=== PATIENT | male | born 1940 | race Caucasian/White ===

== ENCOUNTER 2021-06-01 19:36 | Inpatient (IN) | payer MEDICARE ==
[~2021-06-01] VITALS: Ht 180.3 cm; Wt 96.0 kg
[2021-06-01] MEDS ORDERED: normal saline 1000ML IV soln IV ONE (19:55)
[2021-06-01] MEDS ORDERED: CefTRIAXone 2gm/D5W 50ml BAG 50 ML IV ONE (20:15)
[2021-06-01] MEDS ORDERED: vancomycin/NS 1 GM ADD-VANTAGE 250 ML IV ONE (20:15)
[2021-06-01 20:40] LABS: BASOPHILS % (AUTO) 0.5 % (0-1); EOSINOPHILS # (AUTO) 0.1 X10'3 (0-0.9); EOSINOPHILS % (AUTO) 1.1 % (0-6); HEMATOCRIT 42.6 % (42.0-52.0); HEMOGLOBIN 13.9 g/dl (14.0-17.9); LYMPHOCYTES % (AUTO) 12.9 % (21-51); MEAN CORPUSCULAR HEMOGLOBIN 29.3 PG (27.0-31.0); MEAN CORPUSCULAR HGB CONC 32.7 g/dL (33.0-36.5); MEAN CORPUSCULAR VOLUME 89.8 FL (78-98); MEAN PLATELET VOLUME 9.6 FL (7.4-10.4); MONOCYTES # (AUTO) 0.6 X10'3 (0-0.9); MONOCYTES % (AUTO) 8.2 % (2-12); NEUTROPHILS # (AUTO) 5.8 X10'3 (1.8-7.7); NEUTROPHILS % (AUTO) 77.3 % (42-75); PLATELET COUNT 166 X10'3 (140-440); RED BLOOD COUNT 4.74 X10'6 (4.70-6.10); RED CELL DISTRIBUTION WIDTH 13.5 % (11.5-14.5); WHITE BLOOD COUNT 7.5 X10'3 (4.5-11.0)
[2021-06-01 20:43] LABS: ALANINE AMINOTRANSFERASE 27 U/L (12-78); ALBUMIN 3.2 G/DL (3.4-5.0); ALBUMIN/GLOBULIN RATIO 0.8 (1.1-1.5); ALKALINE PHOSPHATASE 78 IU/L (46-116); ANION GAP 6 (8-16); ASPARTATE AMINO TRANSFERASE 16 U/L (10-37); BILIRUBIN,TOTAL 0.3 MG/DL (0.1-1.0); BLOOD UREA NITROGEN 22 MG/DL (7-18); BUN/CREATININE RATIO 16.5 (5.4-32.0); CALCIUM 8.9 MG/DL (8.5-10.1); CHLORIDE 111 MMOL/L (99-107); CREATININE 1.33 MG/DL (0.60-1.10); GLUCOSE 105 MG/DL (70-104); POTASSIUM 4.2 MMOL/L (3.5-5.1); SODIUM 145 MMOL/L (135-145); TOTAL CARBON DIOXIDE 27.6 MMOL/L (24-32); TOTAL PROTEIN 7.2 G/DL (6.4-8.2); eGFR 52 ML/MIN
[2021-06-01] MEDS ORDERED: temazepam 15mg capsule PO PRN (21:00)
[2021-06-01] MEDS ORDERED: mag hydrox/Alum hydrox/simeth 30ml oral suspension PO PRN (21:45)
[2021-06-01] MEDS ORDERED: acetaminophen 325mg tablet PO PRN ×2 (21:45)
[2021-06-01] MEDS ORDERED: magnesium Cl slow-release 64mg tablet PO PRN (21:45)
[2021-06-01] MEDS ORDERED: potassium Cl 20 mEq SR tablet PO PRN ×2 (21:45)
[2021-06-01] MEDS ORDERED: magnesium 2GM in 50ml NS 50 ML IV PRN (21:45)
[2021-06-01] MEDS ORDERED: morphine 2 MG/ML inj. syringe IV PRN (21:45)
[2021-06-01] MEDS ORDERED: magnesium 4gm in 100ml NS 100 ML IV PRN (21:45)
[2021-06-01] MEDS ORDERED: ondansetron/PF 4mg/2ml inj IV PRN (21:45)
[2021-06-01] MEDS ORDERED: potassium Cl 40MEQ/1/2NS 520ml 520 ML IV PRN ×2 (21:45)
[2021-06-01] MEDS ORDERED: magnesium hydroxide 30ml (MOM) UD suspension PO PRN (21:45)
[2021-06-01 22:16] LABS: CLARITY,URINE CLEAR (Clear); COLOR,URINE YELLOW (Yellow); GLUCOSE, URINE NEGATIVE (Neg); KETONES,URINE NEGATIVE (Neg); LEUKOCYTE ESTERASE ,URINE NEGATIVE (Neg); NITRITES, URINE NEGATIVE (Neg); OCCULT BLOOD,URINE NEGATIVE (Neg); PROTEIN,URINE NEGATIVE (Neg); UROBILINOGEN,URINE 0.2 E.U/dL (0.2-1.0)
[2021-06-01 22:23] LABS: UA COLLECTION TYPE CLN CATCH MIDSTREAM
[2021-06-02] MEDS: normal saline 1000ml 1,000 ML IV SCH ×2 (00:31→16:06)
--- NOTE | 2021-06-02 02:16 | NUR ---
pt ambulated to restroom and back in room17 on a steady gait.
[2021-06-02 04:32] LABS: BASOPHILS % (AUTO) 0.6 % (0-1); EOSINOPHILS # (AUTO) 0.1 X10'3 (0-0.9); EOSINOPHILS % (AUTO) 1.8 % (0-6); HEMATOCRIT 38.3 % (42.0-52.0); HEMOGLOBIN 12.5 g/dl (14.0-17.9); LYMPHOCYTES % (AUTO) 18.2 % (21-51); MEAN CORPUSCULAR HEMOGLOBIN 29.1 PG (27.0-31.0); MEAN CORPUSCULAR HGB CONC 32.6 g/dL (33.0-36.5); MEAN CORPUSCULAR VOLUME 89.3 FL (78-98); MEAN PLATELET VOLUME 9.8 FL (7.4-10.4); MONOCYTES # (AUTO) 0.5 X10'3 (0-0.9); MONOCYTES % (AUTO) 9.7 % (2-12); NEUTROPHILS # (AUTO) 3.9 X10'3 (1.8-7.7); NEUTROPHILS % (AUTO) 69.7 % (42-75); PLATELET COUNT 138 X10'3 (140-440); RED BLOOD COUNT 4.29 X10'6 (4.70-6.10); RED CELL DISTRIBUTION WIDTH 13.8 % (11.5-14.5); WHITE BLOOD COUNT 5.6 X10'3 (4.5-11.0)
[2021-06-02 05:01] LABS: ALANINE AMINOTRANSFERASE 30 U/L (12-78); ALBUMIN 2.5 G/DL (3.4-5.0); ALBUMIN/GLOBULIN RATIO 0.7 (1.1-1.5); ALKALINE PHOSPHATASE 65 IU/L (46-116); ANION GAP 9 (8-16); ASPARTATE AMINO TRANSFERASE 19 U/L (10-37); BILIRUBIN,TOTAL 0.2 MG/DL (0.1-1.0); BLOOD UREA NITROGEN 19 MG/DL (7-18); BUN/CREATININE RATIO 17.4 (5.4-32.0); CALCIUM 7.9 MG/DL (8.5-10.1); CHLORIDE 114 MMOL/L (99-107); CREATININE 1.09 MG/DL (0.60-1.10); GLUCOSE 95 MG/DL (70-104); SODIUM 149 MMOL/L (135-145); TOTAL CARBON DIOXIDE 25.7 MMOL/L (24-32); eGFR 65 ML/MIN
[2021-06-02] MEDS: K and/or MAG REPLACEMENT MC SCH ×2 (08:00→20:00)
[2021-06-02] MEDS: vancomycin/NS 1 GM ADD-VANTAGE 250 ML IV SCH ×2 (09:04→20:42)
[2021-06-02] MEDS ORDERED: BUDE10.2 INH (09:40)
[2021-06-02] MEDS ORDERED: LEVO50TA8 PO (09:40)
[2021-06-02] MEDS ORDERED: MONT10TA32 PO (09:40)
[2021-06-02] MEDS ORDERED: ALBU8.5H17 IH (09:40)
[2021-06-02] MEDS ORDERED: ROSU20TA2 PO (09:40)
[2021-06-02] MEDS ORDERED: EZET10TA6 PO (09:40)
[2021-06-02] MEDS ORDERED: ATEN-27 PO (09:40)
[2021-06-02 10:06] VITALS: BP 164/85
[2021-06-02] MEDS ORDERED: albuterol 2.5 MG/3 ML nebule NEB PRN (10:10)
[2021-06-02] MEDS: HYDROcodone/acetaminophen 5mg/325mg tablet PO PRN ×2 (10:39→17:54)
--- NOTE | 2021-06-02 12:28 | NUR ---
SCD BROUGHT TO THE PAC UNIT AND SCD APPLIED TO PT. Addendum: 06/02/21 at 1229 by Nola Lynn RN, RN Amended: Links added.
--- NOTE | 2021-06-02 14:29 | NUR ---
DR WARD AT [facility] PT. Addendum: 06/02/21 at 1429 by Nola Lynn RN RN Amended: Links added.
--- NOTE | 2021-06-02 16:00 | NUR ---
I have received report from Nola [facility]TI[facility] and had the opportunity to ask questions and will assume patient care once to Med/Surg.
[2021-06-02] MEDS: CefTRIAXone 2gm/D5W 50ml BAG 50 ML IV SCH (16:06)
[2021-06-02 16:30] VITALS: BP 139/71
--- NOTE | 2021-06-02 16:30 | NUR ---
Pt arrived to Med/Surg via hospital bed. To Room 348A. Pt without s/sx distress, no c/o at this time, VSS. Pt oriented to room. Will continue to monitor.
[2021-06-02 18:00] VITALS: BP 145/58
--- NOTE | 2021-06-02 18:24 | NUR ---
Problems reprioritized. Patient report given, questions answered & plan of care reviewed with Naty ORTIZ.
[2021-06-02 19:00] VITALS: BP 145/58
[2021-06-02] MEDS ORDERED: vancomycin/NS 1 GM ADD-VANTAGE 250 ML IV SCH (21:00)
[2021-06-02] MEDS: budesonide 0.5mg/2ml UD nebule IH SCH (22:30)
[2021-06-02] MEDS: albuterol 2.5 MG/3 ML nebule NEB SCH (22:30)
[2021-06-03] VITALS: BP 154/74
[2021-06-03] MEDS: albuterol 2.5 MG/3 ML nebule NEB SCH ×4 (02:48→20:06)
[2021-06-03] MEDS: normal saline 1000ml 1,000 ML IV SCH ×2 (03:39→16:39)
[2021-06-03 06:35] LABS: BASOPHILS % (AUTO) 0.5 % (0-1); EOSINOPHILS # (AUTO) 0.1 X10'3 (0-0.9); EOSINOPHILS % (AUTO) 2.5 % (0-6); HEMATOCRIT 38.5 % (42.0-52.0); HEMOGLOBIN 12.3 g/dl (14.0-17.9); LYMPHOCYTES # (AUTO) 0.8 X10'3 (1.1-4.8); LYMPHOCYTES % (AUTO) 17.4 % (21-51); MEAN CORPUSCULAR HEMOGLOBIN 28.8 PG (27.0-31.0); MEAN PLATELET VOLUME 9.7 FL (7.4-10.4); MONOCYTES # (AUTO) 0.5 X10'3 (0-0.9); MONOCYTES % (AUTO) 10.2 % (2-12); NEUTROPHILS # (AUTO) 3.3 X10'3 (1.8-7.7); NEUTROPHILS % (AUTO) 69.4 % (42-75); PLATELET COUNT 135 X10'3 (140-440); RED BLOOD COUNT 4.28 X10'6 (4.70-6.10); RED CELL DISTRIBUTION WIDTH 13.6 % (11.5-14.5); WHITE BLOOD COUNT 4.8 X10'3 (4.5-11.0)
[2021-06-03 06:36] LABS: ALANINE AMINOTRANSFERASE 23 U/L (12-78); ALBUMIN 2.5 G/DL (3.4-5.0); ALBUMIN/GLOBULIN RATIO 0.7 (1.1-1.5); ALKALINE PHOSPHATASE 64 IU/L (46-116); ANION GAP 8 (8-16); ASPARTATE AMINO TRANSFERASE 14 U/L (10-37); BILIRUBIN,TOTAL 0.1 MG/DL (0.1-1.0); BLOOD UREA NITROGEN 16 MG/DL (7-18); BUN/CREATININE RATIO 14.5 (5.4-32.0); CALCIUM 7.8 MG/DL (8.5-10.1); CHLORIDE 113 MMOL/L (99-107); GLUCOSE 108 MG/DL (70-104); POTASSIUM 3.8 MMOL/L (3.5-5.1); SODIUM 147 MMOL/L (135-145); TOTAL CARBON DIOXIDE 26.2 MMOL/L (24-32); TOTAL PROTEIN 5.9 G/DL (6.4-8.2); eGFR 65 ML/MIN
--- NOTE | 2021-06-03 06:40 | NUR ---
Patient in room [facility]. I have received report from Naty ORTIZ and had the opportunity to ask questions and assume patient care.
[2021-06-03 07:00] VITALS: BP 125/76
--- NOTE | 2021-06-03 07:05 | NUR ---
Problems reprioritized. Patient report given, questions answered & plan of care reviewed with DIANA Dejesus.
[2021-06-03] MEDS: ezetimibe 10mg tablet PO SCH (08:00)
[2021-06-03] MEDS: K and/or MAG REPLACEMENT MC SCH ×2 (08:00→20:00)
[2021-06-03] MEDS: levoTHYROXINE 25mcg tablet PO SCH (08:00)
[2021-06-03] MEDS: CefTRIAXone 2gm/D5W 50ml BAG 50 ML IV SCH (08:00)
[2021-06-03] MEDS: atenolol 25mg tablet PO SCH (08:00)
[2021-06-03] MEDS: atorvastatin 20mg tablet PO SCH (08:01)
[2021-06-03] MEDS: montelukast 10mg tablet PO SCH (08:01)
[2021-06-03] MEDS: budesonide 0.5mg/2ml UD nebule IH SCH ×2 (08:17→20:06)
[2021-06-03] MEDS ORDERED: VANCOMYCIN LEVEL IV ONE (08:30)
[2021-06-03] MEDS: vancomycin/NS 1 GM ADD-VANTAGE 250 ML IV SCH (10:03)
[2021-06-03 11:00] VITALS: BP 125/76
--- NOTE | 2021-06-03 11:00 | NUR ---
Problems reprioritized. Patient report given, questions answered & plan of care reviewed with Zenia ORTIZ.
--- NOTE | 2021-06-03 11:09 | NUR ---
Patient in room [facility]. I have received report from DIANA VALLADARES and had the opportunity to ask questions and assume patient care.
[2021-06-03 18:00] VITALS: BP 145/64
--- NOTE | 2021-06-03 18:25 | NUR ---
Patient in room [facility]. I have received report from DIANA Knutson and had the opportunity to ask questions and assume patient care.
--- NOTE | 2021-06-03 18:25 | NUR ---
Problems reprioritized. Patient report given, questions answered & plan of care reviewed with DIANA Alfonso.
[2021-06-03] MEDS: VANCOmycin 1250MG/NS 250ml Bag 250 ML IV SCH (21:29)
[2021-06-04] VITALS (17 sets, daily range): BP systolic 121–152; BP diastolic 53–82
[2021-06-04] MEDS: albuterol 2.5 MG/3 ML nebule NEB SCH ×4 (02:51→20:27)
[2021-06-04 06:23] LABS: BASOPHILS % (AUTO) 0.7 % (0-1); EOSINOPHILS # (AUTO) 0.1 X10'3 (0-0.9); EOSINOPHILS % (AUTO) 2.4 % (0-6); HEMATOCRIT 38.2 % (42.0-52.0); HEMOGLOBIN 12.3 g/dl (14.0-17.9); LYMPHOCYTES # (AUTO) 0.8 X10'3 (1.1-4.8); LYMPHOCYTES % (AUTO) 15.5 % (21-51); MEAN CORPUSCULAR HEMOGLOBIN 28.8 PG (27.0-31.0); MEAN CORPUSCULAR HGB CONC 32.3 g/dL (33.0-36.5); MEAN CORPUSCULAR VOLUME 89.1 FL (78-98); MONOCYTES # (AUTO) 0.4 X10'3 (0-0.9); MONOCYTES % (AUTO) 7.5 % (2-12); NEUTROPHILS # (AUTO) 3.7 X10'3 (1.8-7.7); NEUTROPHILS % (AUTO) 73.9 % (42-75); PLATELET COUNT 146 X10'3 (140-440); RED BLOOD COUNT 4.28 X10'6 (4.70-6.10); RED CELL DISTRIBUTION WIDTH 13.4 % (11.5-14.5)
--- NOTE | 2021-06-04 06:25 | NUR ---
Problems reprioritized. Patient report given, questions answered & plan of care reviewed with DIANA Corcoran.
[2021-06-04 06:43] LABS: ALANINE AMINOTRANSFERASE 20 U/L (12-78); ALBUMIN 2.6 G/DL (3.4-5.0); ALBUMIN/GLOBULIN RATIO 0.7 (1.1-1.5); ALKALINE PHOSPHATASE 67 IU/L (46-116); ANION GAP 11 (8-16); ASPARTATE AMINO TRANSFERASE 17 U/L (10-37); BILIRUBIN,TOTAL 0.3 MG/DL (0.1-1.0); BLOOD UREA NITROGEN 13 MG/DL (7-18); BUN/CREATININE RATIO 12.9 (5.4-32.0); CALCIUM 8.2 MG/DL (8.5-10.1); CHLORIDE 113 MMOL/L (99-107); CREATININE 1.01 MG/DL (0.60-1.10); GLUCOSE 89 MG/DL (70-104); MAGNESIUM 1.9 MG/DL (1.5-2.4); POTASSIUM 3.9 MMOL/L (3.5-5.1); SODIUM 149 MMOL/L (135-145); TOTAL CARBON DIOXIDE 25.2 MMOL/L (24-32); TOTAL PROTEIN 6.1 G/DL (6.4-8.2); eGFR 71 ML/MIN
[2021-06-04] MEDS: normal saline 1000ml 1,000 ML IV SCH ×2 (06:57→21:09)
[2021-06-04] MEDS: budesonide 0.5mg/2ml UD nebule IH SCH ×2 (07:56→20:27)
[2021-06-04] MEDS: K and/or MAG REPLACEMENT MC SCH ×2 (08:00→20:00)
[2021-06-04] MEDS: CefTRIAXone 2gm/D5W 50ml BAG 50 ML IV SCH (09:30)
[2021-06-04] MEDS ORDERED: ceFAZolin 1000mg inj ONE (09:41)
[2021-06-04] MEDS ORDERED: bacitracin 15gm ointment TP ONE (09:41)
--- NOTE | 2021-06-04 09:46 | NUR ---
Problems reprioritized. Patient report given, questions answered & plan of care reviewed with DIANA LAM FROM [facility].
[2021-06-04] MEDS ORDERED: dexamethasone sod phosphate 10mg/ml inj ONE (10:13)
[2021-06-04] MEDS ORDERED: sevoflurane 250ml liquid IH ONE (10:13)
[2021-06-04] MEDS ORDERED: hydrALAZINE 20mg/ml inj. IV PRN ×2 (10:15→10:40)
[2021-06-04] MEDS ORDERED: fentaNYL/PF 50MCG/1 ML 2ML syringe IV PRN ×4 (10:15→10:40)
[2021-06-04] MEDS ORDERED: labetalol 20mg/4ml (5mg/ml) syringe IV PRN ×2 (10:15→10:40)
[2021-06-04] MEDS ORDERED: morphine 2 MG/ML inj. syringe IV PRN ×2 (10:15→10:40)
[2021-06-04] MEDS ORDERED: ondansetron/PF 4mg/2ml inj IV PRN ×2 (10:15→10:40)
[2021-06-04] MEDS ORDERED: morphine 4 MG/ML inj SYRINge IV PRN ×2 (10:15→10:40)
[2021-06-04] MEDS ORDERED: ringers solution, lacted 1,000 ML IV SCH ×2 (10:15→10:40)
[2021-06-04] MEDS ORDERED: fentaNYL/PF 50MCG/1 ML 2ML syringe ONE (10:17)
[2021-06-04] MEDS ORDERED: midazolam 1 mg/ML 2ml injection ONE (10:18)
[2021-06-04] MEDS ORDERED: propofol inj 20 ML IV ONE (10:19)
[2021-06-04] MEDS ORDERED: LIDOcaine 2% (20mg/ml) 5ml vial ONE (10:19)
[2021-06-04] MEDS ORDERED: ondansetron/PF 4mg/2ml inj ONE (10:43)
--- NOTE | 2021-06-04 10:58 | NUR ---
Received from OR via SURGICAL BED , accompanied by Anesthesiologist JERMAN and report given by Anesthesiolgist. PATIENT WITH 20G PIV IN RIGHT UE RUNNING LR AT 100. DENIES PAIN AT THIS TIME. 10L MASK ON WITH 100% SATURATIONS. SCDS DONNED. LEFT UE IN SLING AND ELBOW EMILY BANDAGE/FOREARM SPLINT IN PLACE. NO DRAINAGE PRESENT. + CAP REFILL TO FINGERS ON LEFT UE. Addendum: 06/04/21 at 1111 by Brendon Lynn RN, RN Amended: Links added.
--- NOTE | 2021-06-04 11:41 | NUR ---
Patient in room [facility] 348B. I have received report from DIANA SMILEY FROM [facility] and had the opportunity to ask questions and assume patient care.
--- NOTE | 2021-06-04 11:58 | NUR ---
PATIENT TAKEN TO ROOM WITH NO BELONGINGS AND HOOKED UP TO MONITORS IN ROOM AND GIVEN CALL LIGHT, REPORT GIVEN TO RN WHO HAS TAKEN OVER PATIENT CARE.SHYANN DELATORER PRESENT TO SET UP VS. Addendum: 06/04/21 at 1204 by Brendon Lynn RN, RN Amended: Links added.
[2021-06-04] MEDS: levoTHYROXINE 25mcg tablet PO SCH (12:46)
[2021-06-04] MEDS: atenolol 25mg tablet PO SCH (12:46)
[2021-06-04] MEDS: ezetimibe 10mg tablet PO SCH (12:47)
[2021-06-04] MEDS: montelukast 10mg tablet PO SCH (12:47)
[2021-06-04] MEDS: atorvastatin 20mg tablet PO SCH (12:47)
[2021-06-04] MEDS: VANCOmycin 1250MG/NS 250ml Bag 250 ML IV SCH ×2 (12:47→22:44)
--- NOTE | 2021-06-04 18:36 | NUR ---
Problems reprioritized. Patient report given, questions answered & plan of care reviewed with DIANA DUBOIS.
[2021-06-04] MEDS: HYDROcodone/acetaminophen 5mg/325mg tablet PO PRN (18:48)
[2021-06-05] VITALS: BP 129/63
[2021-06-05] MEDS: albuterol 2.5 MG/3 ML nebule NEB SCH ×2 (02:46→08:24)
[2021-06-05 06:29] LABS: BASOPHILS % (AUTO) 0 % (0-1); EOSINOPHILS % (AUTO) 0 % (0-6); HEMATOCRIT 37.1 % (42.0-52.0); HEMOGLOBIN 12.2 g/dl (14.0-17.9); LYMPHOCYTES # (AUTO) 0.3 X10'3 (1.1-4.8); MEAN CORPUSCULAR HEMOGLOBIN 29.1 PG (27.0-31.0); MEAN CORPUSCULAR VOLUME 88.1 FL (78-98); MEAN PLATELET VOLUME 9.7 FL (7.4-10.4); MONOCYTES # (AUTO) 0.3 X10'3 (0-0.9); NEUTROPHILS # (AUTO) 5.4 X10'3 (1.8-7.7); PLATELET COUNT 165 X10'3 (140-440); RED BLOOD COUNT 4.21 X10'6 (4.70-6.10); RED CELL DISTRIBUTION WIDTH 13.6 % (11.5-14.5)
[2021-06-05 06:59] LABS: ALANINE AMINOTRANSFERASE 19 U/L (12-78); ALBUMIN 2.5 G/DL (3.4-5.0); ALBUMIN/GLOBULIN RATIO 0.7 (1.1-1.5); ALKALINE PHOSPHATASE 70 IU/L (46-116); ANION GAP 10 (8-16); ASPARTATE AMINO TRANSFERASE 14 U/L (10-37); BILIRUBIN,TOTAL 0.2 MG/DL (0.1-1.0); BLOOD UREA NITROGEN 16 MG/DL (7-18); BUN/CREATININE RATIO 15.5 (5.4-32.0); CALCIUM 8.2 MG/DL (8.5-10.1); CHLORIDE 112 MMOL/L (99-107); CREATININE 1.03 MG/DL (0.60-1.10); GLUCOSE 122 MG/DL (70-104); POTASSIUM 4.3 MMOL/L (3.5-5.1); SODIUM 148 MMOL/L (135-145); TOTAL CARBON DIOXIDE 25.7 MMOL/L (24-32); eGFR 70 ML/MIN
[2021-06-05 07:00] VITALS: BP 133/61
[2021-06-05] MEDS: HYDROcodone/acetaminophen 5mg/325mg tablet PO PRN (07:26)
[2021-06-05] MEDS: ezetimibe 10mg tablet PO SCH (07:27)
[2021-06-05] MEDS: levoTHYROXINE 25mcg tablet PO SCH (07:27)
[2021-06-05] MEDS: atenolol 25mg tablet PO SCH (07:28)
[2021-06-05] MEDS: atorvastatin 20mg tablet PO SCH (07:29)
[2021-06-05] MEDS: K and/or MAG REPLACEMENT MC SCH (07:29)
[2021-06-05] MEDS: montelukast 10mg tablet PO SCH (07:29)
[2021-06-05] MEDS: CefTRIAXone 2gm/D5W 50ml BAG 50 ML IV SCH (07:30)
[2021-06-05] MEDS: budesonide 0.5mg/2ml UD nebule IH SCH (08:24)
[2021-06-05] MEDS ORDERED: VANCOMYCIN LEVEL IV ONE (08:30)
[2021-06-05] MEDS: VANCOmycin 1250MG/NS 250ml Bag 250 ML IV SCH (09:00)
--- NOTE | 2021-06-05 09:18 | NUR ---
Initial: Pt admit for left elbow bursitis, s/p incision and drainage 06/04. Pt on a regular diet documented with mostly 100% PO intake throughout LOS meeting estimated nutrient needs. LBM 05/05 per physical assessment though likely intended to be 06/05 as previous BM was 06/03. No nutrition intervention implemented at this time. Will continue to follow. Recommendations: 1) Continue regular diet 2) Monitor need for additional protein for satiety 3) Bowel care per rx 4) Weekly scaled weights Addendum: 06/05/21 at [address] Amended: Links added.
[2021-06-05] MEDS ORDERED: AMOX-580 PO (09:36)
[2021-06-05] MEDS ORDERED: HYDR-3965 PO (09:36)
[2021-06-05 11:00] VITALS: BP 138/73
--- NOTE | 2021-06-05 14:00 | NUR ---
PT DISCHARGED HOME WITH . WILL DO HOME DRESSING CHANGES, WITH POTENTIAL OF HOME HEALTH TO HELP IF APPROVED. PT WILL F/U AT WOUND CARE CLINIC WITH DR RODNEY ON WEDNESDAY AT 0800. PT AND STATE UNDERSTANDING OF WOUND CARE CHANGING AT HOME. I HAVE SHOWN AND ENCOURAGED HELP DURING CHANGING AND HAVE GIVEN VERY DETAILED INSTRUCTION ON PACKING WOUND AND DR RUVALCABA'S DRESSING ORDERS. IV TAKEN OUT, ALL BELONGINGS TAKEN FROM ROOM. PT ALERT, APPROPRIATE AND AMBULATORY AND APPROPRIATE FOR DISCHARGE.
== END 2021-06-05 14:03 | disposition home health service (06) | DRG 465 ==
LOC: ER 19:37 → ED HOLD 21:53 → PAS IN 06-02 08:47 → SUR 3N 06-02 16:20
PROVIDERS: ADMIT Internal Medicine; ATTEND Family Medicine
PROC: 2W3DX1Z Immobilization of Left Lower Arm using Splint (ICD-10-PCS; 2021-06-04)
PROC: 0JBH0ZZ Excision of Left Lower Arm Subcutaneous Tissue and Fascia, Open Approach (ICD-10-PCS; 2021-06-04)
PROC: 0MB40ZZ Excision of Left Elbow Bursa and Ligament, Open Approach (ICD-10-PCS; principal; 2021-06-04 10:13)
DX: M71.122 Other infective bursitis, left elbow (principal); N18.30 Chronic kidney disease, stage 3 unspecified; Z20.822 Contact with and (suspected) exposure to COVID-19; I12.9 Hypertensive chronic kidney disease with stage 1 through stage 4 chronic kidney disease, or unspecified chronic kidney disease; E03.9 Hypothyroidism, unspecified; E78.5 Hyperlipidemia, unspecified; J45.909 Unspecified asthma, uncomplicated; Z79.899 Other long term (current) drug therapy; Z88.8 Allergy status to other drugs, medicaments and biological substances
CPT/HCPCS: 36415; 80053; 80202; 81003; 82948; 83605; 83735; 84145; 84443; 85025; 87040; 87081; 87635; 93005; 94640; 94760; 99285; A4618; A6266; A6446; A6449; A7000; G0378; J0690; J0696; J1100; J2001; J2250; J2405; J2704; J3010; J3370; J7030; J7120; J7626

== ENCOUNTER 2023-02-23 13:54 | Emergency (ER) | payer MEDICARE, OTHER ==
[~2023-02-23] VITALS: Ht 177.8 cm; Wt 91.8 kg
[~2023-02-23 13:54] MED LIST: ALBU8.5H17 IH; ATEN-27 PO; BUDE10.2 INH; EZET10TA6 PO; LEVO50TA8 PO; MONT-40 PO; ROSU20TA2 PO
[2023-02-23 14:19] VITALS: BP 127/69
== END 2023-02-23 18:13 | disposition home or self-care (01) ==
LOC: ER 13:55
DX: S90.32XA Contusion of left foot, initial encounter (principal); Z79.899 Other long term (current) drug therapy; Z88.8 Allergy status to other drugs, medicaments and biological substances; X58.XXXA Exposure to other specified factors, initial encounter; Y93.89 Activity, other specified; Y92.89 Other specified places as the place of occurrence of the external cause; Y99.8 Other external cause status
CPT/HCPCS: 73630; 93971; 99284; A6449